=== PATIENT | female | born 1945 | race Caucasian/White ===

== ENCOUNTER 2017-02-02 10:13 | Emergency (ER) | payer MEDICARE, BC ==
[~2017-02-02] VITALS: Ht 149.9 cm; Wt 83.9 kg
[2017-02-02] MEDS ORDERED: TYLE325T5 PO (10:36)
[2017-02-02] MEDS ORDERED: CHLO125TA (10:36)
[2017-02-02] MEDS ORDERED: SIMV20TA2 (10:36)
[2017-02-02] MEDS ORDERED: OLME20TA2 (10:36)
[2017-02-02] MEDS ORDERED: FLUT1SPR2 (10:36)
[2017-02-02] MEDS ORDERED: SYNT75TA (10:36)
[2017-02-02] MEDS ORDERED: DICL75TA (10:36)
[2017-02-02] MEDS ORDERED: POTA10TAB (10:36)
[2017-02-02] MEDS ORDERED: OMEP20CA3 (10:36)
[2017-02-02 12:13] LABS: BASO % 0.6 % (0.0-1.0); EOS # 0.5 K/mm3 (0.0-0.50); EOS % 7.9 % (0.0-3.0); LARGE UNSTAINED CELL # 0.2 K/mm3 (0.0-0.4); LYMPH # 1.9 K/mm3 (1.5-4.5); LYMPH % 29.8 % (24.0-44.0); MEAN CORPUSCULAR HEMOGLOBIN 30.1 pg (27.0-33.0); MEAN CORPUSCULAR HGB CONC 33.1 g/dl (32.0-36.5); MEAN CORPUSCULAR VOLUME 90.9 fl (80.0-96.0); MONO # 0.5 K/mm3 (0.0-0.8); MONO % 8.3 % (0.0-5.0); NEUTROPHILS % 50.4 % (36.0-66.0); PLATELET COUNT, AUTOMATED 345 k/mm3 (150-450); RED CELL DISTRIBUTION WIDTH 12.5 % (11.5-14.5); WHITE BLOOD COUNT 5.9 K/mm3 (4.0-10.0)
[2017-02-02 12:46] LABS: CALCIUM LEVEL 8.8 MG/DL (8.8-10.2); CREATININE FOR GFR 1.07 MG/DL (0.55-1.02); GLOMERULAR FILTRATION RATE 53.7 (>39); POTASSIUM SERUM 3.2 MEQ/L (3.5-5.1)
[2017-02-02] MEDS ORDERED: ISOVUE-370 76% 100ML VIAL (Q9967) As Ordered ONE (12:53)
[2017-02-02] MEDS ORDERED: ACET30TAB PO (13:46)
[2017-02-02 13:55] VITALS: BP 130/69
--- NOTE | 2017-02-02 14:09 | REP ---
CT ABDOMEN AND PELVIS WITH IV CONTRAST: TECHNIQUE: Axial contrast enhanced images from the lung bases to the pubic symphysis using 100 mL Isovue 370 intravenous contrast material with multiplanar reformations. COMPARISON: [facility] 08/09/2016. Visualized lung bases demonstrate chronic fibrotic changes. The liver, gallbladder, spleen, adrenals, and pancreas are unremarkable and unchanged. A tiny cyst is seen in each kidney. There is no hydronephrosis bilaterally. 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 There is no abdominal aortic aneurysm with scattered atherosclerotic calcifications. There is no adenopathy. There is no free air or free fluid. There is no bowel thickening. There is an umbilical hernia containing fat which appears unchanged. There is sigmoid diverticulosis without acute diverticulitis. Patient appears to have had hysterectomy. There is no pelvic mass. Urinary bladder is not well distended and not well evaluated. IMPRESSION: Chronic findings as above with no evidence of acute abdominal or pelvic pathology. Umbilical hernia contains fat and is stable since prior study of 08/09/2016. There is sigmoid diverticulosis without acute diverticulitis. 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 Signed by Eron Saldana MD 02/02/2017 05:39 P
--- NOTE | 2017-02-05 10:08 | REP ---
TWO VIEW CHEST: COMPARISON: 02/08/2006 There is no evidence of acute infiltrate. No pleural effusion is seen. The heart is normal in size. The mediastinal silhouette is unremarkable. The visualized osseous structures are intact. There is mild tortuosity of the thoracic aorta. There are mild degenerative changes of the spine. IMPRESSION: No acute pulmonary disease. Signed by Eron Saldana MD 02/05/2017 04:34 P
== END 2017-02-02 14:04 | disposition home or self-care (01) ==
LOC: M ED 11:31
DX: R10.30 Lower abdominal pain, unspecified (principal); S23.3XXA Sprain of ligaments of thoracic spine, initial encounter; X58.XXXA Exposure to other specified factors, initial encounter; Y92.89 Other specified places as the place of occurrence of the external cause; Y93.89 Activity, other specified; Y99.8 Other external cause status; I10 Essential (primary) hypertension; R51 Headache; E78.00 Pure hypercholesterolemia, unspecified; K57.32 Diverticulitis of large intestine without perforation or abscess without bleeding; Z87.891 Personal history of nicotine dependence; Z79.899 Other long term (current) drug therapy
CPT/HCPCS: 36415; 71020; 74177; 80048; 81001; 82150; 83690; 85025; 86140; 87086; 99282; Q9967

== ENCOUNTER 2017-07-05 07:30 | Day surgery (SDC) | payer MEDICARE, BC ==
[~2017-07-05] VITALS: Ht 152.4 cm; Wt 83.5 kg
[~2017-07-05 07:30] MED LIST: ACET30TAB PO; ALLE180T33 PO; ASPI1TAB PO; BENA25CA4 PO; CALC1TAB42 PO; CALC600T60 PO; CHLO125TA PO; DICL75TA; DICL75TA PO; ESTR1CRE PV; FLUT1SPR2; OLME20TA2 PO; OMEP20CA3 PO; POTA10TAB PO; SIMV20TA2; SYNT75TA PO; TYLE325T5 PO; TYLE650T35 PO; VITA100067 PO
[2017-07-05] MEDS ORDERED: LR 1,000 ML IV ONE (08:00)
[2017-07-05] MEDS ORDERED: BUPIVACAINE HCL 0.25% 30 ML VIAL As Ordered ONE (09:35)
[2017-07-05] MEDS ORDERED: BUPIVACAINE LIPOSOME/PF 1.3% 20 ML VIAL (13.3MG/ML)(EXPAREL) As Ordered ONE (09:35)
[2017-07-05] MEDS ORDERED: LIDOCAINE 2% INJ 100 MG/5 ML SDV (FOR ANES.) As Ordered ONE (10:35)
[2017-07-05] MEDS ORDERED: fentaNYL 100 MCG/2 ML INJECTION (J3010) As Ordered ONE (10:35)
[2017-07-05] MEDS ORDERED: PROPOFOL 200 MG/20 ML VIAL As Ordered ONE ×2 (10:35→11:04)
[2017-07-05] MEDS ORDERED: MIDAZOLAM INJ 2 MG/2 ML VIAL (J2250) As Ordered ONE (10:35)
[2017-07-05] MEDS ORDERED: PHENYLephrine HCL 500 MCG/5 ML (100MCG/ML) SYRINGE (J2370) As Ordered ONE (10:39)
[2017-07-05] MEDS ORDERED: ePHEDrine SULFATE 25 MG/5 ML(5MG/ML) SYRINGE As Ordered ONE ×2 (10:49→11:16)
[2017-07-05] MEDS ORDERED: PERCOCET 5MG/325MG TAB As Ordered ONE (12:04)
[2017-07-05] MEDS ORDERED: PERCOCET 5MG/325MG TAB PO PRN (12:15)
[2017-07-05] MEDS ORDERED: LR 1,000 ML IV SCH (12:15)
[2017-07-05] MEDS ORDERED: fentaNYL 100 MCG/2 ML INJECTION (J3010) IV PRN (12:15)
[2017-07-05] MEDS ORDERED: NORCO, ANEXSIA 5/325MG TABLET (HYDROcodone/ACETAMINOPHEN) PO PRN (12:15)
[2017-07-05] MEDS ORDERED: IBUPROFEN 400 MG TAB PO PRN (12:15)
[2017-07-05] MEDS ORDERED: ACETAMINOPHEN TAB 650MG DOSE (2X325MG) PO PRN (12:15)
[2017-07-05] MEDS ORDERED: ONDANSETRON 4MG/2ML VIAL (J2405) IV PRN (12:15)
[2017-07-05 16:35] VITALS: BP 126/60
--- NOTE | 2017-07-05 21:16 | ECGEPIP ---
Stationary ECG Study [facility] Test Date: 2017-07-05 Pat Name: WARNER AYALA Department: Room: - Gender: F [employer]: : [id number] Requested By: Liban Pearson Order Number: [id number] Reading MD: Chavez Muro Measurements Intervals [place] Rate: 68 P: 65 WA: 162 QRS: 72 QRSD: 89 T: 59 QT: 420 QTc: 450 Interpretive Statements Normal sinus rhythm Low precordial QRS voltage Delayed anterior R wave progression Consider prior IWMI Comparison tracing not on file Electronically Signed On 07-05-2017 21:15:57 EDT by Chavez Muro
--- NOTE | 2017-07-06 18:13 | RO ---
DATE OF PROCEDURE: 07/05/2017 PREOPERATIVE DIAGNOSIS: Incarcerated umbilical hernia. POSTOPERATIVE DIAGNOSIS: Incarcerated umbilical hernia. PROCEDURE PERFORMED: Umbilical herniorrhaphy. SURGEON: Dr. Pearson ANESTHESIA: Spinal. INDICATIONS FOR PROCEDURE: The patient is a 72-year-old woman who noticed a bulge at the superior aspect of the umbilicus. Initially this was reducible but has become incarcerated. She has noted some discomfort in this area. She is now for repair of her incarcerated umbilical hernia. OPERATIVE PROCEDURE: The patient had a spinal anesthetic placed. She was placed supine. The patient's abdomen was prepped and draped in a sterile fashion. A slightly curved transverse supraumbilical incision was made. This was deepened into the subcutaneous tissues. The umbilical skin was peeled off of the underlying umbilical hernia. The hernia sac was identified and peeled away from some underlying fibrofatty tissue. Some of this appeared to be preperitoneal. As the fatty tissue was transected just above the fascia. It was clear that there was an opening into the peritoneum and some omentum was entrapped. The omentum was also transected using the cautery as it could not be reduced through the smaller fascial opening. The hernia sac was sent as one specimen and the omentum as a second specimen. Once the tissues had been cleared from within the fascial defect. The fascial defect appeared to be approximately 1.5 to maximally 2 cm in maximal diameter. The edges of the fascia were cleared of some thinned areas and adherent fat. The defect appeared amendable to a primary closure. The fascia was therefore closed transversely with interrupted simple sutures of 0 Ethibond. 10-15 mL of 0.25% Marcaine were infiltrated about the wound. The wound was inspected for hemostasis and this was ensured using the cautery. The umbilical skin was tacked down to the underlying fascia using 3-0 Vicryl. Skin edges were brought together with buried 3-0 Vicryl and the skin edges approximated with a running subcuticular 4-0 Vicryl and Steri-Strips. The umbilicus was filled with fluffed gauze and covered with a 4x4. The dressing was taped in place. The patient was then awakened in the operating room, extubated and moved to the recovery room in stable condition. VANESSA
== END 2017-07-05 16:45 | disposition home or self-care (01) ==
LOC: M SDC 07:30
PROVIDERS: ATTEND Surgery
DX: K42.0 Umbilical hernia with obstruction, without gangrene (principal); I10 Essential (primary) hypertension; E78.00 Pure hypercholesterolemia, unspecified; E03.9 Hypothyroidism, unspecified; K57.92 Diverticulitis of intestine, part unspecified, without perforation or abscess without bleeding; K58.9 Irritable bowel syndrome, unspecified; K21.9 Gastro-esophageal reflux disease without esophagitis; M19.90 Unspecified osteoarthritis, unspecified site; N81.10 Cystocele, unspecified; R32 Unspecified urinary incontinence; J30.9 Allergic rhinitis, unspecified; M54.9 Dorsalgia, unspecified; Z88.1 Allergy status to other antibiotic agents; Z79.899 Other long term (current) drug therapy; Z79.82 Long term (current) use of aspirin
CPT/HCPCS: 49587; 88302; 88305; 93005; J2250; J2370; J3010

== ENCOUNTER → 2017-10-12 | Outpatient (CLI) | payer MEDICARE, BC ==
[~2017-10-12] MED LIST changes: +ZYRT10TA2 PO
[2017-10-12 12:15] LABS: MEAN CORPUSCULAR HEMOGLOBIN 29.9 pg (27.0-33.0); MEAN CORPUSCULAR HGB CONC 31.8 g/dl (32.0-36.5); MEAN CORPUSCULAR VOLUME 94.1 fl (80.0-96.0); PLATELET COUNT, AUTOMATED 376 10^3/uL (150-450); RED CELL DISTRIBUTION WIDTH 13.8 % (11.5-14.5); WHITE BLOOD COUNT 8.6 10^3/uL (4.0-10.0)
[2017-10-12 12:33] LABS: INR 0.99
[2017-10-12 12:43] LABS: ALBUMIN 3.1 GM/DL (3.2-5.2); ALBUMIN/GLOBULIN RATIO 0.63 (1.00-1.93); ALKALINE PHOSPHATASE 200 U/L (45-117); ALT/SGPT 48 U/L (12-78); ANION GAP 4 MEQ/L (8-16); AST/SGOT 38 U/L (7-37); BILIRUBIN,TOTAL 0.3 MG/DL (0.2-1.0); BLOOD UREA NITROGEN 22 MG/DL (7-18); CALCIUM LEVEL 8.7 MG/DL (8.8-10.2); CARBON DIOXIDE LEVEL 33 MEQ/L (21-32); CHLORIDE LEVEL 102 MEQ/L (98-107); GLOMERULAR FILTRATION RATE > 60.0 (>39); GLUCOSE, FASTING 95 MG/DL (83-110); POTASSIUM SERUM 4.3 MEQ/L (3.5-5.1); SODIUM LEVEL 139 MEQ/L (136-145)
[2017-10-12 12:44] LABS: ERYTHROCYTE SEDIMENTATION RATE 74 mm/hr (0-30)
--- NOTE | 2017-10-12 15:24 | REP ---
CHEST, TWO VIEWS: Two views of the chest are performed and compared to prior study of 02/02/2017. No acute infiltrate is seen. Lungs are clear. Heart is upper limits of normal in size. There is mild calcification and tortuosity of the thoracic aorta. The mediastinal silhouette is unchanged. There are degenerative changes of the spine. IMPRESSION: No acute pulmonary disease. Signed by Eron Saldana MD 10/12/2017 05:01 P
== END ==
LOC: M ADMPAT 10:18
PROVIDERS: ATTEND Orthopaedic Surgery
DX: Z01.818 Encounter for other preprocedural examination (principal); M19.112 Post-traumatic osteoarthritis, left shoulder; Z79.899 Other long term (current) drug therapy

== ENCOUNTER → 2017-10-15 | Outpatient (REF) | payer MEDICARE, BC | LOC: M LAB REF 18:18 | PROVIDERS: ATTEND Family Medicine | DX: R74.8 Abnormal levels of other serum enzymes (principal) ==

== ENCOUNTER → 2017-10-30 | Outpatient (CLI) | payer MEDICARE, BC | LOC: M RAD 09:24 | DX: R74.8 Abnormal levels of other serum enzymes (principal); R79.82 Elevated C-reactive protein (CRP) | CPT/HCPCS: 78306 ==

== ENCOUNTER → 2017-11-05 | Outpatient (CLI) | payer MEDICARE, BC | LOC: M RAD 09:58 | DX: R94.8 Abnormal results of function studies of other organs and systems (principal) | CPT/HCPCS: 72110 ==

== ENCOUNTER → 2017-11-15 | Outpatient (REF) | payer MEDICARE, BC ==
[2017-11-15 14:24] LABS: C REACTIVE PROTEIN QUANTITATIV 2.16 MG/DL (0.00-0.30)
== END ==
LOC: M LAB REF 13:33
DX: M25.50 Pain in unspecified joint (principal)
CPT/HCPCS: 86140

== ENCOUNTER → 2018-01-03 | Outpatient (REF) | payer MEDICARE, BC ==
[2018-01-03 19:10] LABS: RHEUMATOID FACTOR QUANT 11.3 IU/ML (0-15.0)
[2018-01-07 00:06] LABS: ANTINUCLEAR ANTIBODIES DIRECT Negative (Negative)
[2018-01-07 00:06] LABS: CYCLIC CITRULLINATED PEPTIDE 8 units (0-19)
== END ==
LOC: M LAB REF 17:22
DX: M79.1 Myalgia (principal); D48.5 Neoplasm of uncertain behavior of skin
CPT/HCPCS: 86038

== ENCOUNTER → 2018-05-03 | Outpatient (CLI) | payer MEDICARE, BC ==
[2018-05-03 10:35] LABS: CREATININE FOR GFR 0.95 MG/DL (0.55-1.30); GLOMERULAR FILTRATION RATE > 60.0 (>39)
[2018-05-03 10:35] LABS: BLOOD UREA NITROGEN 25 MG/DL (7-18)
== END ==
LOC: M LAB 09:42
DX: M19.012 Primary osteoarthritis, left shoulder (principal)
CPT/HCPCS: 82565

== ENCOUNTER → 2018-05-06 | Outpatient (CLI) | payer MEDICARE, BC ==
[~2018-05-06] MED LIST changes: -ACET30TAB PO; -ALLE180T33 PO; -ASPI1TAB PO; -BENA25CA4 PO; -CALC1TAB42 PO; -CALC600T60 PO; -CHLO125TA PO; -DICL75TA; -DICL75TA PO; -ESTR1CRE PV; -FLUT1SPR2; -OLME20TA2 PO; -OMEP20CA3 PO; -POTA10TAB PO; +PROHANCE 279.3MG/ML 15ML VIAL (A9576) As Ordered; +PROHANCE 279.3MG/ML 5ML VIAL (A9576) As Ordered; -SIMV20TA2; -SYNT75TA PO; -TYLE325T5 PO; -TYLE650T35 PO; -VITA100067 PO; -ZYRT10TA2 PO
== END ==
LOC: M RAD 12:26
DX: M19.012 Primary osteoarthritis, left shoulder (principal)
CPT/HCPCS: A9576

== ENCOUNTER → 2018-06-04 | Outpatient (REF) | payer MEDICARE, BC | LOC: M LAB REF 13:03 | DX: R70.0 Elevated erythrocyte sedimentation rate (principal) | CPT/HCPCS: 86140 ==

== ENCOUNTER → 2018-07-03 | Outpatient (CLI) | payer MEDICARE, BC ==
[2018-07-03 09:44] LABS: HEMATOCRIT 36.9 % (36.0-47.0); MEAN CORPUSCULAR HEMOGLOBIN 30.3 pg (27.0-33.0); MEAN CORPUSCULAR HGB CONC 32.5 g/dl (32.0-36.5); MEAN CORPUSCULAR VOLUME 93.2 fl (80.0-96.0); PLATELET COUNT, AUTOMATED 355 10^3/uL (150-450); RED BLOOD COUNT 3.96 10^6/uL (4.00-5.40); RED CELL DISTRIBUTION WIDTH 13.2 % (11.5-14.5); WHITE BLOOD COUNT 6.5 10^3/uL (4.0-10.0)
[2018-07-03 09:54] LABS: INR 1.02; PROTHROMBIN TIME 13.5 SECONDS (12.1-14.4)
[2018-07-03 10:08] LABS: ERYTHROCYTE SEDIMENTATION RATE 65 mm/hr (0-30)
[2018-07-03 10:11] LABS: ALBUMIN 3.3 GM/DL (3.2-5.2); ALBUMIN/GLOBULIN RATIO 0.63 (1.00-1.93); ALKALINE PHOSPHATASE 193 U/L (45-117); ALT/SGPT 26 U/L (12-78); ANION GAP 11 MEQ/L (8-16); AST/SGOT 22 U/L (7-37); BILIRUBIN,TOTAL 0.3 MG/DL (0.2-1.0); BLOOD UREA NITROGEN 16 MG/DL (7-18); CALCIUM LEVEL 9.2 MG/DL (8.8-10.2); CARBON DIOXIDE LEVEL 26 MEQ/L (21-32); CHLORIDE LEVEL 103 MEQ/L (98-107); CREATININE FOR GFR 0.69 MG/DL (0.55-1.30); GLOMERULAR FILTRATION RATE > 60.0 (>39); GLUCOSE, FASTING 100 MG/DL (70-100); POTASSIUM SERUM 3.8 MEQ/L (3.5-5.1); SODIUM LEVEL 140 MEQ/L (136-145); TOTAL PROTEIN 8.5 GM/DL (6.4-8.2)
== END ==
LOC: M LAB 08:56
DX: Z01.818 Encounter for other preprocedural examination (principal)
CPT/HCPCS: 71046

== ENCOUNTER 2018-07-23 10:01 | Inpatient (IN) | payer MEDICARE, BC ==
[2018-07-23] MEDS: ACETAMINOPHEN 500 MG TAB PO (10:46)
[2018-07-23] MEDS: LR 1,000 ML IV ×3 (10:46→18:50)
[2018-07-23] MEDS ORDERED: fentaNYL 100 MCG/2 ML INJECTION (J3010) As Ordered ×3 (11:53→17:04)
[2018-07-23] MEDS ORDERED: MIDAZOLAM INJ 2 MG/2 ML VIAL (J2250) As Ordered ×2 (11:53→12:24)
[2018-07-23] MEDS: MIDAZOLAM INJ 2 MG/2 ML VIAL (J2250) IV (12:11)
[2018-07-23] MEDS: fentaNYL 100 MCG/2 ML INJECTION (J3010) IV (12:11)
[2018-07-23] MEDS ORDERED: LIDOCAINE 2% INJ 100 MG/5 ML SDV (FOR ANES.) As Ordered (12:24)
[2018-07-23] MEDS ORDERED: PROPOFOL 200 MG/20 ML VIAL As Ordered (12:24)
[2018-07-23] MEDS ORDERED: ONDANSETRON 4MG/2ML VIAL (J2405) As Ordered (12:24)
[2018-07-23] MEDS ORDERED: ROCURONIUM BROMIDE 50 MG/5 ML VIAL As Ordered (13:19)
[2018-07-23] MEDS ORDERED: ROPIvacaine 0.5% 30 ML INJECTION (J2795 PER 1MG) (14:06)
[2018-07-23] MEDS ORDERED: EPINEPHrine INJ 1 MG/ML 1ML AMP (14:06)
[2018-07-23] MEDS ORDERED: dexameTHASONE 10 MG/1 ML VIAL PRES.FREE (J1100) (14:06)
[2018-07-23] MEDS ORDERED: SUGAMMADEX SODIUM 500 MG/5 ML VIAL (BRIDION) As Ordered (14:33)
[2018-07-23] MEDS: ceFAZolin 1GM INJ (J0690 PER 500MG) As Ordered (14:38)
[2018-07-23] MEDS: EPINEPHrine INJ 1 MG/ML 1ML AMP As Ordered (14:38)
[2018-07-23] MEDS ORDERED: PHENYLephrine HCL 500 MCG/5 ML (100MCG/ML) SYRINGE (J2370) As Ordered (15:16)
[2018-07-23] MEDS: VANCOMYCIN HCL 500 MG/10 ML VIAL (J3370) As Ordered (16:56)
[2018-07-23] MEDS ORDERED: NORCO, ANEXSIA 5/325MG TABLET (HYDROcodone/ACETAMINOPHEN) PO (17:30)
[2018-07-23] MEDS ORDERED: fentaNYL 100 MCG/2 ML INJECTION (J3010) IV (17:30)
[2018-07-23] MEDS ORDERED: diphenhydrAMINE INJ 50MG/ML VIAL (J1200) IV (17:30)
[2018-07-23] MEDS ORDERED: NALBUPHINE HCL 10 MG/ML AMP (J2300) IV (17:30)
[2018-07-23] MEDS ORDERED: EPIDURAL/PCA KEYS XX (17:30)
[2018-07-23] MEDS ORDERED: ONDANSETRON 4MG/2ML VIAL (J2405) IV ×2 (17:30)
[2018-07-23] MEDS ORDERED: NALOXONE INJ 0.4 MG/1 ML VIAL (J2310) IV (17:30)
[2018-07-23] MEDS: MORPHINE 1MG/ML IN 0.9% NACL 100ML IV BAG IV (17:35)
[2018-07-23] MEDS ORDERED: FLEET ENEMA PR (17:45)
[2018-07-23] MEDS ORDERED: ACETAMINOPHEN TAB 650MG DOSE (2X325MG) PO (17:45)
[2018-07-23] MEDS ORDERED: ALBUTEROL 90 MCG/ACT 8GM HFA INHALER INH (18:45)
[2018-07-23] MEDS: LATANOPROST 0.005% OPHTH SOLN 2.5 ML OS (21:08)
[2018-07-23] MEDS: SENOKOT S TAB PO (21:08)
[2018-07-23] MEDS: SIMVASTATIN 20 MG TAB PO (21:08)
[2018-07-23] MEDS: ceFAZolin SOD 1 GM in D5W MINI-BAG PLUS 50 ML IV (23:35)
[2018-07-24] MEDS: LR 1,000 ML IV (02:27)
[2018-07-24] MEDS: ceFAZolin SOD 1 GM in D5W MINI-BAG PLUS 50 ML IV (03:15)
[2018-07-24] MEDS: LEVOTHYROXINE 75MCG TABLET (0.075MG) PO (05:51)
[2018-07-24] MEDS ORDERED: ONDANSETRON 4 MG TAB (S0181) PO (06:45)
[2018-07-24] MEDS ORDERED: PERCOCET 5MG/325MG TAB PO (06:45)
[2018-07-24 07:00] LABS: HEMATOCRIT 28.8 % (36.0-47.0); HEMOGLOBIN 9.3 g/dl (12.0-15.5); MEAN CORPUSCULAR HGB CONC 32.3 g/dl (32.0-36.5); MEAN CORPUSCULAR VOLUME 92.9 fl (80.0-96.0); PLATELET COUNT, AUTOMATED 283 10^3/uL (150-450); RED CELL DISTRIBUTION WIDTH 13.3 % (11.5-14.5); WHITE BLOOD COUNT 13.4 10^3/uL (4.0-10.0)
[2018-07-24 07:10] LABS: INR 1.11; PROTHROMBIN TIME 14.5 SECONDS (12.1-14.4)
[2018-07-24 07:13] LABS: ANION GAP 10 MEQ/L (8-16); BLOOD UREA NITROGEN 23 MG/DL (7-18); CALCIUM LEVEL 8.1 MG/DL (8.8-10.2); CARBON DIOXIDE LEVEL 25 MEQ/L (21-32); CHLORIDE LEVEL 102 MEQ/L (98-107); CREATININE FOR GFR 0.85 MG/DL (0.55-1.30); GLOMERULAR FILTRATION RATE > 60.0 (>39); GLUCOSE, FASTING 166 MG/DL (70-100); POTASSIUM SERUM 3.9 MEQ/L (3.5-5.1); SODIUM LEVEL 137 MEQ/L (136-145)
[2018-07-24] MEDS: CETIRIZINE (ZyrTEC) 10 MG TAB PO (08:27)
[2018-07-24] MEDS: OMEPRAZOLE 20 MG CAP PO (08:27)
[2018-07-24] MEDS: SENOKOT S TAB PO (08:27)
[2018-07-24] MEDS: VITAMIN D 1,000 INTERNATIONAL UNITS TABLET PO (08:27)
[2018-07-24] MEDS: PERCOCET 5MG/325MG TAB PO (08:29)
[2018-07-24] MEDS: ASCORBIC ACID 500 MG TAB PO (08:29)
[2018-07-24] MEDS: CHLORTHALIDONE 12.5MG PER 1/2 TABLET PO (08:29)
[2018-07-24] MEDS: FLUTICASONE PROP 0.05% NASAL SPRAY 16 GM (FLONASE) (08:30)
[2018-07-24] MEDS: MIRALAX *UNIT DOSE* 17GM PACKET PO (08:30)
[2018-07-24] MEDS: OLMESARTAN MEDOXOMIL 20 MG TAB (BENICAR) PO (08:47)
[2018-07-24] MEDS ORDERED: ENTER DRUG NAME HERE (PATIENT'S OWN MED) PO (09:00)
== END 2018-07-24 10:55 | disposition home or self-care (01) | DRG 483 ==
LOC: M OR 10:01 → M MS5PR 18:00
PROC: 0RRK0JZ Replacement of Left Shoulder Joint with Synthetic Substitute, Open Approach (ICD-10-PCS; principal; 2018-07-23 13:10)
DX: M19.012 Primary osteoarthritis, left shoulder (principal); I10 Essential (primary) hypertension; E66.9 Obesity, unspecified; E78.5 Hyperlipidemia, unspecified; E03.9 Hypothyroidism, unspecified; K57.90 Diverticulosis of intestine, part unspecified, without perforation or abscess without bleeding; J30.9 Allergic rhinitis, unspecified; K21.9 Gastro-esophageal reflux disease without esophagitis; Z96.652 Presence of left artificial knee joint; Z90.49 Acquired absence of other specified parts of digestive tract; Z90.710 Acquired absence of both cervix and uterus; Z79.82 Long term (current) use of aspirin; Z79.899 Other long term (current) drug therapy; Z87.891 Personal history of nicotine dependence; Z68.38 Body mass index [BMI] 38.0-38.9, adult

== ENCOUNTER → 2019-09-22 | Outpatient (REF) | payer MEDICARE, BC ==
[~2019-09-22] MED LIST changes: +ACET-716 PO; +ALLE180T33 PO; +ASPI81TA26 PO; +BENA25CA4 PO; +CALC1TAB42 PO; +CALC600T60 PO; +CHLO125TA PO; +DICL75TA; +DICL75TA PO; +ESTR1CRE PV; +ESTR1CRE VA; +FLON1SPR; +FLUT1SPR2; +LATA0.0013 OS; +MYRB25TA PO; +OLME20TA2 PO; +OLME40TA PO; +OMEP20CA4 PO; +PERC5TAB12 PO; +POTA10808 PO; -PROHANCE 279.3MG/ML 15ML VIAL (A9576) As Ordered; -PROHANCE 279.3MG/ML 5ML VIAL (A9576) As Ordered; +SIMV20TA2; +SYNT75TA PO; +TYLE325T5 PO; +TYLE650T35 PO; +VENTAER INH; +VITA100067 PO; +VITA500T PO; +ZYRT10CA5 PO
== END ==
LOC: M LAB REF 12:11
PROVIDERS: ATTEND Family Medicine
DX: R70.0 Elevated erythrocyte sedimentation rate (principal)

== ENCOUNTER → 2019-09-23 | Outpatient (REF) | payer MEDICARE, BC ==
[~2019-09-23] MED LIST changes: -SIMV20TA2; +SIMV20TA22
[2019-09-23 18:46] LABS: PERCENT SATURATION 19.1 % (13.2-45.0)
[2019-09-23 18:51] LABS: FOLATE 15.9 NG/ML
== END ==
LOC: M LAB REF 17:22
PROVIDERS: ATTEND Family Medicine
DX: D64.9 Anemia, unspecified (principal)

== ENCOUNTER → 2019-11-25 | Outpatient (REF) | payer MEDICARE, BC ==
[~2019-11-25] MED LIST changes: +OMEP1CAP73 PO; -OMEP20CA4 PO
[2019-11-25 18:29] LABS: PLATELET COUNT, AUTOMATED 364 10^3/uL (150-450)
[2019-11-25 18:38] LABS: INR 1.12; PROTHROMBIN TIME 14.1 SECONDS (11.8-14.0)
[2019-11-25 18:39] LABS: PARTIAL THROMBOPLASTIN TIME 30.4 SECONDS (25.0-38.4)
== END ==
LOC: M LABDRAW1 17:39
PROVIDERS: ATTEND Physician Assistant
DX: M47.817 Spondylosis without myelopathy or radiculopathy, lumbosacral region (principal); Z79.01 Long term (current) use of anticoagulants

== ENCOUNTER 2019-12-17 18:10 | Emergency (ER) | payer MEDICARE, BC ==
[2019-12-17] MEDS ORDERED: ACETAMINOPHEN 325 MG TAB PO ONE (19:15)
[2019-12-17] MEDS ORDERED: KETOROLAC 30 MG/ML VIAL (J1885) IM ONE (19:15)
[2019-12-17] MEDS ORDERED: traMADol 50 MG TAB PO ONE (19:15)
[2019-12-17 20:12] VITALS: BP 151/69
[2019-12-17] MEDS ORDERED: ULTR50TA8 PO (20:23)
== END 2019-12-17 21:00 | disposition home or self-care (01) ==
LOC: M ED 18:10 → EDBD 18:10 → M ED 21:00
DX: M51.37 Other intervertebral disc degeneration, lumbosacral region (principal); I10 Essential (primary) hypertension; E03.9 Hypothyroidism, unspecified; E78.00 Pure hypercholesterolemia, unspecified; Z79.899 Other long term (current) drug therapy; Z79.82 Long term (current) use of aspirin; Z79.890 Hormone replacement therapy; Z88.1 Allergy status to other antibiotic agents
CPT/HCPCS: 96372; 99284; J1885

== ENCOUNTER → 2019-12-23 | Outpatient (REF) | payer MEDICARE, BC ==
[~2019-12-23] MED LIST changes: +ULTR50TA8 PO
[2019-12-23 13:07] LABS: C REACTIVE PROTEIN QUANTITATIV 3.93 MG/DL (0.00-0.30)
[2019-12-23 14:19] LABS: % LABILE ALKALINE PHOSPHATASE 34.2 %
== END ==
LOC: M LAB REF 12:12
PROVIDERS: ATTEND Family Medicine
DX: M25.50 Pain in unspecified joint (principal); R79.89 Other specified abnormal findings of blood chemistry

== ENCOUNTER → 2020-04-23 | Outpatient (CLI) | payer MEDICARE, BC ==
[~2020-04-23] MED LIST changes: +VITA-243 PO; -VITA500T PO
== END ==
LOC: M LABSMTC 10:57
PROVIDERS: ATTEND Physical Medicine & Rehabilitation
DX: Z01.818 Encounter for other preprocedural examination (principal); Z11.59 Encounter for screening for other viral diseases

== ENCOUNTER → 2020-05-20 | Outpatient (REF) | payer MEDICARE, BC ==
[~2020-05-20] MED LIST changes: +ACET650T61 PO; -TYLE650T35 PO
== END ==
LOC: M LAB REF 11:19
PROVIDERS: ATTEND Family Medicine
DX: M25.50 Pain in unspecified joint (principal); R74.8 Abnormal levels of other serum enzymes

== ENCOUNTER → 2020-06-09 | Outpatient (REF) | payer MEDICARE, BC ==
[2020-07-20 12:27] LABS: PLATELET COUNT, AUTOMATED 347 10^3/uL (150-450)
[2020-08-09 12:36] LABS: COLLAGEN ADP 90 SECONDS (56-103); COLLAGEN EPINEPHRINE > 300 SECONDS (74-162)
[2020-08-09 12:37] LABS: INR 1.07; PARTIAL THROMBOPLASTIN TIME 37.6 SECONDS (24.2-38.5); PROTHROMBIN TIME 14.1 SECONDS (12.5-14.3)
== END ==
LOC: M PLALAB 16:09
PROVIDERS: ATTEND Physician Assistant
DX: M47.817 Spondylosis without myelopathy or radiculopathy, lumbosacral region (principal)

== ENCOUNTER → 2020-06-28 | Outpatient (CLI) | payer MEDICARE, BC | LOC: M LABSMTC 14:07 | PROVIDERS: ATTEND Physical Medicine & Rehabilitation | DX: Z20.828 Contact with and (suspected) exposure to other viral communicable diseases (principal) | CPT/HCPCS: C9803; U0002 ==

== ENCOUNTER → 2020-07-07 | Outpatient (REF) | payer MEDICARE, BC ==
[2020-07-07 20:33] LABS: FERRITIN 170 NG/ML (8-252); FOLATE 17.2 NG/ML; HEPATITIS A ANTIBODY IGM NEGATIVE (NEGATIVE); HEPATITIS B CORE ANTIBODY IGM NEGATIVE (NEGATIVE); HEPATITIS B SURFACE ANTIGEN NEGATIVE (NEGATIVE); HEPATITIS C VIRUS ABY INDEX 0.2 INDEX (<0.8); RHEUMATOID FACTOR QUANT 17.7 IU/ML (<15.0); VITAMIN B12 LEVEL 359 PG/ML
[2020-07-09 17:07] LABS: ANTI-MITOCHONDRIAL ANTIBODY <20.0 Units (0.0-20.0); ANTINUCLEAR ANTIBODIES DIRECT Negative (Negative)
== END ==
LOC: M LAB REF 18:18
PROVIDERS: ATTEND Family Medicine
DX: R74.8 Abnormal levels of other serum enzymes (principal); D64.9 Anemia, unspecified

== ENCOUNTER → 2020-08-23 | Outpatient (CLI) | payer MEDICARE, BC ==
[2020-08-23 14:14] LABS: C REACTIVE PROTEIN QUANTITATIV 3.34 MG/DL (0.00-0.30); RHEUMATOID FACTOR QUANT 17.9 IU/ML (<15.0)
[2020-08-27 14:09] LABS: ANTINUCLEAR ANTIBODIES DIRECT Negative (Negative); HLA-B27 Negative (.)
== END ==
LOC: M PLALAB 10:50
PROVIDERS: ATTEND Physician Assistant
DX: M47.817 Spondylosis without myelopathy or radiculopathy, lumbosacral region (principal)

== ENCOUNTER → 2020-11-04 | Outpatient (CLI) | payer MEDICARE, BC ==
--- NOTE | 2020-11-04 13:49 | DEXAMM ---
INDICATION: Z78.0 ASYMPTOMATIC MENOPAUSAL STATE. COMPARISON: Comparison studies including most recent exam from April 22, 2014 and the most remote which is dated September 12, 2000. TECHNIQUE: Bone density was measured using dual-energy x-ray absorptionmetry (DEXA). FINDINGS: AP SPINE L1-L4 BMD 1.259 g/cm2 Young Adult T-Score 0.7 Age Matched Z-Score 2.4. LT FEMUR, TOTAL BMD 0.897 g/cm2 Young Adult T-Score -0.9 Age Matched Z-Score 0.9. LT NECK BMD 0.867 g/cm2 Young Adult T-Score -1.2 Age Matched Z-Score 0.8. RT FEMUR, TOTAL BMD 0.826 g/cm2 Young Adult T-Score -1.4 Age Matched Z-Score 0.5. RT NECK BMD 0.837 g/cm2 Young Adult T-Score -1.5 Age Matched Z-Score 0.5. IMPRESSION: There is normal bone density of the spine. There is low bone density of the left hip. There is low bone density of the right hip. The density of the spine has increased 33.4% since the initial exam on September 12, 2000. The density of the spine increased 19.3% since most recent exam on April 22, 2014. The density of the left hip has increased 4.4% since initial exam on September 12, 2000. The density of the left hip has increase 0.9% since most recent exam on April 22, 2014. The density of the right hip has increased 0.8% since the initial exam on September 12, 2000. The density of the right hip has decreased 4.5% since the most recent exam on April 22, 2014. FOLLOW-UP: Recommendation for the next bone density exam: 2 years. <Electronically signed by Noé Hawkins > 11/04/20 [id number]
== END ==
LOC: M WHC 12:51
PROVIDERS: ATTEND Internal Medicine
DX: Z78.0 Asymptomatic menopausal state (principal)

== ENCOUNTER → 2020-11-04 | Outpatient (CLI) | payer MEDICARE, BC ==
--- NOTE | 2020-11-04 14:55 | REPPI ---
INDICATION: SOB COMPARISON: 07/03/2018 TECHNIQUE: PA and lateral. FINDINGS: The mediastinum and cardiac silhouette are normal. The lung fonseca are clear and without acute consolidation, effusion, or pneumothorax. The skeletal structures demonstrate osteopenia and degenerative changes along with left shoulder replacement. IMPRESSION: No acute cardiopulmonary process. <Electronically signed by Ollie Newell > 11/04/20 [id number]
--- NOTE | 2020-11-04 15:02 | REPPI ---
Of the right hand. INDICATION: POLYARTHRALGIA. COMPARISON: Comparison radiographs are from January 07, 2018.. TECHNIQUE: Eight views total, 4 of each hand. FINDINGS: Four views of the left hand demonstrate diffuse osteopenia. There is minimal chondrocalcinosis at the wrist. Joint spaces are preserved. No erosive changes are seen.. No fracture or subluxation is seen. No opaque foreign body noted. Four views of the right hand demonstrate diffuse osteopenia as well. There is chondrocalcinosis at the right wrist. No erosive changes are seen. There is mild spurring at the DIP joint of the index finger IMPRESSION: Diffuse osteopenia. Chondrocalcinosis. Minimal degenerative changes.. <Electronically signed by Noé Hawkins > 11/04/20 [id number]
--- NOTE | 2020-11-04 15:15 | REPPI ---
INDICATION: POLYARTHRALGIA COMPARISON: None. TECHNIQUE: AP, lateral, bilateral oblique views of the right and left ankle. FINDINGS: Left ankle demonstrates relatively normal age-appropriate appearance to the osseous structures and joint spaces. The ankle mortise is intact. There is a small spur along the medial malleolus as well as 2 surgical clips in the soft tissues overlying the distal tibial metaphysis suggesting prior vascular surgery. Lateral view demonstrates a small to moderate calcaneal heel spur along with calcifications of the underlying plantar fascia. Right ankle demonstrates relatively normal age-appropriate appearance to the osseous structures and joint spaces. The ankle mortise is intact. There is a small corticated osteophyte along the medial malleolus. Lateral view demonstrates small to moderate calcaneal heel spur along with calcifications of the underlying plantar fascia. IMPRESSION: Relatively symmetric age-related degenerative changes as described above. <Electronically signed by Ollie Newell > 11/04/20 [id number]
--- NOTE | 2020-11-04 15:17 | REPPI ---
INDICATION: POLYARTHRALGIA COMPARISON: None. TECHNIQUE: AP, lateral, bilateral oblique views right and left wrist. FINDINGS: Right wrist demonstrates age-related osteopenia without evidence for fracture or dislocation. Subtle increased sclerosis to the radial surface with mildly decreased radiocarpal joint space noted as well as chondrocalcinosis primarily identified in the triangular fibrocartilage complex. Left wrist demonstrates age-appropriate appearance to the carpal bones and associated joint spaces. There is minimally increased sclerosis to the radial surface with subtle decreased radiocarpal joint space. 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 <Electronically signed by Ollie Newell > 11/04/20 1149
[2020-11-04 18:22] LABS: CPK CREATINE PHOSPHOKINASE 76 U/L (26-192); HEPATITIS B SURFACE ANTIBODY NEGATIVE (POSITIVE); HEPATITIS B SURFACE ANTIGEN NEGATIVE (NEGATIVE); MAGNESIUM LEVEL 2.1 MG/DL (1.8-2.4); PTH INTACT 29.2 PG/ML (18.5-88.0); VITAMIN B12 LEVEL 285 PG/ML (247-911)
[2020-11-04 18:32] LABS: TOTAL 25(OH) VITAMIN D 70.3 NG/ML (30.0-100.0)
[2020-11-04 18:43] LABS: HEPATITIS C VIRUS ABY INDEX 0.2 INDEX (<0.8)
== END ==
LOC: M PLAIMG 13:29
PROVIDERS: ATTEND Internal Medicine
DX: M77.31 Calcaneal spur, right foot (principal); M77.32 Calcaneal spur, left foot; M85.88 Other specified disorders of bone density and structure, other site; M11.231 Other chondrocalcinosis, right wrist; M11.232 Other chondrocalcinosis, left wrist; R76.8 Other specified abnormal immunological findings in serum; M79.10 Myalgia, unspecified site; M25.50 Pain in unspecified joint; R06.02 Shortness of breath; Z78.0 Asymptomatic menopausal state

== ENCOUNTER → 2020-11-30 | Outpatient (REF) | payer MEDICARE, BC ==
[2020-11-30 17:00] LABS: PERCENT SATURATION 20.3 % (13.2-45.0)
== END ==
LOC: M LAB REF 16:02
PROVIDERS: ATTEND Family Medicine
DX: M11.239 Other chondrocalcinosis, unspecified wrist (principal); M25.50 Pain in unspecified joint
CPT/HCPCS: 82728; 83550; G0463

== ENCOUNTER → 2020-12-09 | Outpatient (CLI) | payer MEDICARE, BC ==
[~2020-12-09] MED LIST changes: +ISOVUE-300 61% 50ML VIAL As Ordered ONE; +LIDOCAINE 1% MDV 20ML VIAL As Ordered ONE; +TRIAMCINOLONE ACETONIDE SUSP 40 MG/ML VIAL (J3301) As Ordered ONE
--- NOTE | 2020-12-09 16:51 | REP ---
INDICATION: REJI HIP OA W/ PAIN. COMPARISON: None TECHNIQUE: The procedure was performed by CHANDA Marte, under the direct supervision of Dr. Hawkins. The benefits and risks of the procedure were explained to the patient, and an informed consent was obtained. Directly prior to the start of the procedure, a formal time-out was completed in the procedure room. The right femoral neck joint space was localized using fluoroscopic guidance. The skin was prepped and draped in a sterile fashion. Approximately 5 mL of 1% Lidocaine 10 mg/ml was used as a local anesthetic. Using fluoroscopic guidance, a #22 gauge spinal needle was inserted and advanced into the right femoral neck joint space. Approximately no one mL of Isovue 300 was injected to verify placement. Six mL of a solution containing 5 mL 1% lidocaine 10 mg/ml and 1 mL of Kenalog 40 milligrams/milliliter was injected into the joint space. The needle was removed and hemostasis was achieved. The patient was then repositioned and the left femoral neck joint space was localized using fluoroscopic guidance. The skin was prepped and draped in a sterile fashion. Approximately 5 mL of 1% Lidocaine 10 mg/ml was used as a local anesthetic. Using fluoroscopic guidance, a #22 gauge spinal needle was inserted and advanced into the left femoral neck joint space. Approximately no one mL of Isovue 300 was injected to verify placement. Six mL of a solution containing 5 mL 1% lidocaine 10 mg/ml and 1 mL of Kenalog 40 milligrams/milliliter was injected into the joint space. The needle was removed and hemostasis was achieved. FINDINGS: The patient tolerated the procedure well and there were no immediate complications. IMPRESSION: 1. Bilateral intra-articular hip pain injections under fluoroscopic guidance. 0.4 minutes of fluoroscopy time was utilized for this procedure. Some fluoroscopic images are performed with last image hold technology. These images require no additional radiation. <Electronically signed by Bettina Lopez > 12/09/20 [id number] <Electronically signed by Noé Hawkins > 12/09/20 [id number]
== END ==
LOC: M RADPRO 11:20
PROVIDERS: ATTEND Physician Assistant
DX: M16.0 Bilateral primary osteoarthritis of hip (principal)
CPT/HCPCS: 20610; 77002; J3301; Q9967

== ENCOUNTER → 2021-03-14 | Outpatient (CLI) | payer MEDICARE, BC ==
[~2021-03-14] MED LIST changes: -ISOVUE-300 61% 50ML VIAL As Ordered ONE; -LIDOCAINE 1% MDV 20ML VIAL As Ordered ONE; -TRIAMCINOLONE ACETONIDE SUSP 40 MG/ML VIAL (J3301) As Ordered ONE
[2021-03-14 18:08] LABS: C REACTIVE PROTEIN QUANTITATIV 2.45 MG/DL (0.00-0.30); RHEUMATOID FACTOR QUANT 17.5 IU/ML (<15.0)
== END ==
LOC: M PLALAB 14:59
PROVIDERS: ATTEND Orthopaedic Surgery
DX: M51.37 Other intervertebral disc degeneration, lumbosacral region (principal)

== ENCOUNTER → 2021-03-17 | Outpatient (REF) | payer MEDICARE, BC ==
[2021-03-17 14:19] LABS: % LABILE ALKALINE PHOSPHATASE 34.6 %
== END ==
LOC: M LAB REF 12:10
PROVIDERS: ATTEND Family Medicine
DX: R94.5 Abnormal results of liver function studies (principal)

== ENCOUNTER → 2021-06-27 | Outpatient (CLI) | payer MEDICARE, BC ==
[2021-06-27 16:16] LABS: CREATININE FOR GFR 1.01 MG/DL (0.55-1.30); GLOMERULAR FILTRATION RATE 56.6 (>39)
== END ==
LOC: M LAB 15:14
PROVIDERS: ATTEND Internal Medicine Gastroenterology
DX: I72.8 Aneurysm of other specified arteries (principal)

== ENCOUNTER → 2021-07-13 | Outpatient (CLI) | payer MEDICARE, BC ==
[2021-07-13 12:46] LABS: PLATELET COUNT, AUTOMATED 333 10^3/uL (150-450)
[2021-07-13 12:55] LABS: INR 0.99; PROTHROMBIN TIME 13.5 SECONDS (12.7-14.5)
== END ==
LOC: M LAB 10:49
PROVIDERS: ATTEND Internal Medicine Gastroenterology
DX: I72.8 Aneurysm of other specified arteries (principal)

== ENCOUNTER → 2021-07-14 | Outpatient (REF) | payer MEDICARE, BC | LOC: M LAB REF 16:55 | PROVIDERS: ATTEND Family Medicine | DX: M25.59 Pain in other specified joint (principal) ==

== ENCOUNTER → 2021-07-15 | Outpatient (CLI) | payer MEDICARE, BC ==
[~2021-07-15] MED LIST changes: +ACETAMINOPHEN 325 MG TAB As Ordered ONE; +LIDOCAINE 1% MDV 20ML VIAL As Ordered ONE; +SODIUM BICARBONATE 8.4% INJ 50MEQ 50 ML VIAL As Ordered ONE
[2021-07-15 14:35] VITALS: BP 142/68
--- NOTE | 2021-07-15 17:00 | REP ---
INDICATION: ABN LFTS. COMPARISON: None. TECHNIQUE: The procedure was performed by Bettina Lopez [facility], under the direct supervision of Dr. Saldana. The risks and benefits of the procedure were explained to the patient and an informed consent was obtained both verbally and written. Directly prior to the start of the procedure a formal time-out was completed in the procedure room. FINDINGS: Using ultrasound guidance the left lobe of the liver was localized. The skin was prepped and draped in a sterile fashion. Twenty mL of buffered lidocaine was used as a local anesthetic. Using ultrasound guidance a 17/18 gauge coaxial needle biopsy system was inserted and advanced into the left lobe of the liver. Four core biopsy specimens were obtained and sent to pathology for further analysis. The patient tolerated the procedure well and there were no immediate complications. After the appropriate amount of monitored convalescence the patient was discharged from the department. IMPRESSION: 1. Ultrasound-guided left lobe liver biopsy. <Electronically signed by Bettina Lopez > 07/15/21 [id number] <Electronically signed by Eron Saldana > 07/15/21 [id number]
== END ==
LOC: M IRPRO 11:16
PROVIDERS: ATTEND Internal Medicine Gastroenterology
DX: R94.5 Abnormal results of liver function studies (principal)

== ENCOUNTER → 2021-07-18 | Outpatient (CLI) | payer MEDICARE, BC ==
[~2021-07-18] MED LIST changes: -ACETAMINOPHEN 325 MG TAB As Ordered ONE; +AMIT25TA17 PO; +CALC-211 PO; +CETI10CA2 PO; +CLOB5CR TOP; +EQL1CAP9 PO; +ESTETAB4 PO; +GNP99TAB3 PO; +ISOVUE-370 76% 100ML VIAL As Ordered ONE; -LIDOCAINE 1% MDV 20ML VIAL As Ordered ONE; +MONT10TA97 PO; +NEUR300C PO; +OCUVTAB4 PO; +OMEP-173 PO; +REFR0.5D8 OP; -SIMV20TA22; +SIMV20TA22 PO; -SODIUM BICARBONATE 8.4% INJ 50MEQ 50 ML VIAL As Ordered ONE; +URSO1TAB8 PO; +XALA0.007 OU
== END ==
LOC: M RAD 12:26
PROVIDERS: ATTEND Internal Medicine Gastroenterology
DX: I72.8 Aneurysm of other specified arteries (principal)
CPT/HCPCS: 74174; Q9967

== ENCOUNTER → 2021-07-22 | Outpatient (CLI) | payer MEDICARE, BC ==
[~2021-07-22] MED LIST changes: -AMIT25TA17 PO; -CALC-211 PO; -CETI10CA2 PO; -CLOB5CR TOP; -EQL1CAP9 PO; -ESTETAB4 PO; -GNP99TAB3 PO; -ISOVUE-370 76% 100ML VIAL As Ordered ONE; -MONT10TA97 PO; -NEUR300C PO; -OCUVTAB4 PO; -OMEP-173 PO; -REFR0.5D8 OP; +SIMV20TA22; -SIMV20TA22 PO; -URSO1TAB8 PO; -XALA0.007 OU
--- NOTE | 2021-07-22 09:13 | REP ---
INDICATION: ABNORMAL RESULTS OF LIVER FUNCTION STUDIES. COMPARISON: 06/08/2020 TECHNIQUE: Real-time sonographic evaluation of the right upper quadrant with Doppler FINDINGS: Multiple ultrasonographic images of the liver show diffuse increased echoes throughout the hepatic parenchyma without evidence of a mass or ductal dilatation. The common bile duct measures approximately 6 mm in its greatest transverse dimension. Multiple ultrasonographic images of the gallbladder show no focal or diffuse gallbladder wall thickening. There are no echogenic foci within the gallbladder lumen, which casts acoustic shadows. There is no pericholecystic edema. Images of the pancreatic region show no gross abnormality. The imaged portion of the right kidney is unremarkable. IMPRESSION: Fatty infiltration of the liver. No significant change compared to the prior exam. Accredited by the [employer] in General Ultrasound. <Electronically signed by Jay Baltazar > 07/22/21 [id number]
== END ==
LOC: M RAD 08:12
PROVIDERS: ATTEND Internal Medicine Gastroenterology
DX: R94.5 Abnormal results of liver function studies (principal); K76.0 Fatty (change of) liver, not elsewhere classified

== ENCOUNTER → 2021-11-24 | Outpatient (REF) | payer MEDICARE, BC ==
[~2021-11-24] MED LIST changes: +AMIT25TA17 PO; +CALC-211 PO; +CETI10CA2 PO; +CLOB5CR TOP; +EQL1CAP9 PO; +ESTETAB4 PO; +GNP99TAB3 PO; +MONT10TA97 PO; +NEUR300C PO; +OCUVTAB4 PO; +OMEP-173 PO; +REFR0.5D8 OP; -SIMV20TA22; +SIMV20TA22 PO; +URSO1TAB8 PO; +XALA0.007 OU
== END ==
LOC: M LAB REF 11:57
PROVIDERS: ATTEND Family Medicine
DX: R74.8 Abnormal levels of other serum enzymes (principal)

== ENCOUNTER → 2021-12-01 | Outpatient (CLI) | payer MEDICARE, BC | LOC: M LABSMTC 09:15 | PROVIDERS: ATTEND Anesthesiology | DX: Z01.818 Encounter for other preprocedural examination (principal); Z11.52 Encounter for screening for COVID-19 ==

== ENCOUNTER → 2021-12-26 | Outpatient (CLI) | payer MEDICARE, BC ==
[2021-12-26 13:10] LABS: BASO # 0.1 10^3/uL (0.0-0.2); BASO % 1.5 % (0.0-1.0); EOS # 0.4 10^3/uL (0.0-0.5); EOS % 6.5 % (0.0-3.0); HEMATOCRIT 37.8 % (36.0-47.0); HEMOGLOBIN 11.8 g/dl (12.0-15.5); LYMPH # 1.7 10^3/uL (1.5-5.0); LYMPH % 32.2 % (24.0-44.0); MEAN CORPUSCULAR HEMOGLOBIN 29.4 pg (27.0-33.0); MEAN CORPUSCULAR HGB CONC 31.2 g/dl (32.0-36.5); MONO # 0.6 10^3/uL (0.0-0.8); MONO % 10.2 % (2.0-8.0); NEUTROPHILS # 2.6 10^3/uL (1.5-8.5); NEUTROPHILS % 49.2 % (36.0-66.0); PLATELET COUNT, AUTOMATED 324 10^3/uL (150-450); RED BLOOD COUNT 4.02 10^6/uL (4.00-5.40); WHITE BLOOD COUNT 5.4 10^3/uL (4.0-10.0)
[2021-12-26 16:41] LABS: BLOOD UREA NITROGEN 16 MG/DL (7-18); CARBON DIOXIDE LEVEL 29 MEQ/L (21-32); CHLORIDE LEVEL 104 MEQ/L (98-107); CREATININE FOR GFR 0.73 MG/DL (0.55-1.30); GLOMERULAR FILTRATION RATE > 60.0 (>39); GLUCOSE, FASTING 95 MG/DL (70-100); POTASSIUM SERUM 4.1 MEQ/L (3.5-5.1); SODIUM LEVEL 138 MEQ/L (136-145)
[2021-12-26 16:42] LABS: ALBUMIN 3.1 GM/DL (3.2-5.2); ALT/SGPT 19 U/L (12-78); BILIRUBIN,DIRECT 0.1 MG/DL (0.0-0.2); BILIRUBIN,TOTAL 0.3 MG/DL (0.2-1.0); CALCIUM LEVEL 9.1 MG/DL (8.8-10.2); TOTAL PROTEIN 8.4 GM/DL (6.4-8.2)
[2021-12-26 16:53] LABS: HEPATITIS B SURFACE ANTIBODY NEGATIVE (POSITIVE)
== END ==
LOC: M PLALAB 08:50
DX: K74.3 Primary biliary cirrhosis (principal)

== ENCOUNTER → 2021-12-31 | Outpatient (CLI) | payer MEDICARE, BC | LOC: M LABSMTC 10:06 | PROVIDERS: ATTEND Anesthesiology | DX: Z01.812 Encounter for preprocedural laboratory examination (principal); Z20.822 Contact with and (suspected) exposure to COVID-19 ==

== ENCOUNTER 2022-01-05 10:36 | Day surgery (SDC) | payer MEDICARE, BC ==
[~2022-01-05] VITALS: Ht 149.9 cm; Wt 82.6 kg
[~2022-01-05 10:36] MED LIST changes: +NS 1,000 ML IV ONE
[2022-01-05] MEDS ORDERED: ACET-683 PO (11:00)
[2022-01-05] MEDS ORDERED: LIDOCAINE 2% 100MG/5ML SDV (FOR ANES.) As Ordered ONE (12:40)
[2022-01-05] MEDS ORDERED: propofoL 200 MG/20 ML VIAL As Ordered ONE (12:40)
[2022-01-05 12:51] VITALS: BP 133/63
== END 2022-01-05 13:08 | disposition home or self-care (01) ==
LOC: M OPP 10:36
PROVIDERS: ATTEND Surgery
DX: Z12.11 Encounter for screening for malignant neoplasm of colon (principal); Z86.010 Personal history of colon polyps; K63.5 Polyp of colon; K73.0 Chronic persistent hepatitis, not elsewhere classified; K64.8 Other hemorrhoids; K76.9 Liver disease, unspecified; K58.9 Irritable bowel syndrome, unspecified; Z79.82 Long term (current) use of aspirin; Z79.899 Other long term (current) drug therapy; Z88.1 Allergy status to other antibiotic agents; Z87.891 Personal history of nicotine dependence

== ENCOUNTER → 2022-03-03 | Outpatient (REF) | payer MEDICARE, BC ==
[~2022-03-03] MED LIST changes: +ACET-683 PO; -NS 1,000 ML IV ONE
[2022-03-03 12:52] LABS: APPEARANCE, URINE CLEAR (CLEAR); BACTERIA, URINE AUTO 1+ (NEGATIVE); BILIRUBIN, URINE AUTO NEGATIVE (NEGATIVE); BLOOD, URINE BLOOD NEGATIVE (NEGATIVE); COLOR, URINE YELLOW (YELLOW); GLUCOSE, URINE (UA) AUTO NEGATIVE (NEGATIVE); KETONE, URINE AUTO NEGATIVE (NEGATIVE); LEUKOCYTE ESTERASE, URINE AUTO NEGATIVE (NEGATIVE); NITRITE, URINE AUTO NEGATIVE (NEGATIVE); PROTEIN, URINE AUTO NEGATIVE (NEGATIVE); RBC, URINE AUTO 0 /HPF (0-3); SPECIFIC GRAVITY URINE AUTO 1.012 (1.002-1.035); SQUAMOUS EPITHELIAL CELL UR AU 1 /HPF (0-6); UROBILINOGEN, URINE AUTO 0.2 mg/dL (0.0-2.0); WBC, URINE AUTO 0 /HPF (0-3)
== END ==
LOC: M LAB REF 12:32
PROVIDERS: ATTEND Obstetrics & Gynecology
DX: N39.41 Urge incontinence (principal)

== ENCOUNTER → 2022-03-17 | Outpatient (CLI) | payer MEDICARE, BC ==
[2022-03-17 14:16] LABS: BLOOD UREA NITROGEN 22 MG/DL (7-18); CREATININE FOR GFR 0.92 MG/DL (0.55-1.30); GLOMERULAR FILTRATION RATE > 60.0 (>39)
== END ==
LOC: M LAB 13:14
PROVIDERS: ATTEND Obstetrics & Gynecology
DX: R10.813 Right lower quadrant abdominal tenderness (principal)

== ENCOUNTER → 2022-03-21 | Outpatient (CLI) | payer MEDICARE, BC ==
[~2022-03-21] MED LIST changes: +GASTROGRAFIN SOLUTION 30ML (Q9963) As Ordered ONE; +ISOVUE-370 76% 100ML VIAL As Ordered ONE
== END ==
LOC: M RAD 12:30
PROVIDERS: ATTEND Obstetrics & Gynecology
DX: R10.813 Right lower quadrant abdominal tenderness (principal)
CPT/HCPCS: 74178; Q9963; Q9967

== ENCOUNTER → 2022-04-19 | Outpatient (CLI) | payer MEDICARE, BC ==
[~2022-04-19] MED LIST changes: -GASTROGRAFIN SOLUTION 30ML (Q9963) As Ordered ONE; -ISOVUE-370 76% 100ML VIAL As Ordered ONE
[2022-04-19 16:06] LABS: C REACTIVE PROTEIN QUANTITATIV 1.15 MG/DL (0.00-0.30); RHEUMATOID FACTOR QUANT 25.5 IU/ML (<15.0)
[2022-04-22 00:07] LABS: ANA (HEP2) Positive (.); CYCLIC CITRULLINATED PEPTIDE 5 units (0-19)
== END ==
LOC: M PLAIMG 11:11
PROVIDERS: ATTEND Internal Medicine
DX: M25.471 Effusion, right ankle (principal); M25.472 Effusion, left ankle

== ENCOUNTER → 2022-04-28 | Outpatient (REF) | payer MEDICARE, BC ==
[2022-04-28 13:28] LABS: BASO # 0.1 10^3/uL (0.0-0.2); BASO % 1.2 % (0.0-1.0); EOS # 0.4 10^3/uL (0.0-0.5); EOS % 5.8 % (0.0-3.0); HEMATOCRIT 34.2 % (36.0-47.0); HEMOGLOBIN 10.7 g/dl (12.0-15.5); LYMPH % 30.4 % (24.0-44.0); MEAN CORPUSCULAR HEMOGLOBIN 30.3 pg (27.0-33.0); MEAN CORPUSCULAR HGB CONC 31.3 g/dl (32.0-36.5); MEAN CORPUSCULAR VOLUME 96.9 fl (80.0-96.0); MONO # 0.9 10^3/uL (0.0-0.8); MONO % 13.5 % (2.0-8.0); NEUTROPHILS # 3.3 10^3/uL (1.5-8.5); NEUTROPHILS % 48.8 % (36.0-66.0); PLATELET COUNT, AUTOMATED 301 10^3/uL (150-450); RED BLOOD COUNT 3.53 10^6/uL (4.00-5.40); WHITE BLOOD COUNT 6.7 10^3/uL (4.0-10.0)
[2022-04-28 13:34] LABS: APPEARANCE, URINE CLEAR (CLEAR); BACTERIA, URINE AUTO NEGATIVE (NEGATIVE); BILIRUBIN, URINE AUTO NEGATIVE (NEGATIVE); BLOOD, URINE BLOOD NEGATIVE (NEGATIVE); COLOR, URINE YELLOW (YELLOW); GLUCOSE, URINE (UA) AUTO NEGATIVE (NEGATIVE); KETONE, URINE AUTO NEGATIVE (NEGATIVE); LEUKOCYTE ESTERASE, URINE AUTO TRACE (NEGATIVE); NITRITE, URINE AUTO NEGATIVE (NEGATIVE); PROTEIN, URINE AUTO NEGATIVE (NEGATIVE); RBC, URINE AUTO 0 /HPF (0-3); SPECIFIC GRAVITY URINE AUTO 1.011 (1.002-1.035); SQUAMOUS EPITHELIAL CELL UR AU 2 /HPF (0-6); UROBILINOGEN, URINE AUTO 0.2 mg/dL (0.0-2.0); WBC, URINE AUTO 0 /HPF (0-3)
[2022-04-28 13:53] LABS: COMPLEMENT C3 129 MG/DL (90-180); COMPLEMENT C4 22 MG/DL (10-40)
[2022-04-28 13:59] LABS: CREATININE,RANDOM URINE 47.6 MG/DL
== END ==
LOC: M SFHCRHEU 09:59
PROVIDERS: ATTEND Internal Medicine
DX: R76.8 Other specified abnormal immunological findings in serum (principal)

== ENCOUNTER → 2022-05-03 | Outpatient (REF) | payer MEDICARE, BC | LOC: M LAB REF 12:30 | PROVIDERS: ATTEND Family Medicine | DX: M25.59 Pain in other specified joint (principal) ==

== ENCOUNTER → 2022-06-06 | Outpatient (CLI) | payer MEDICARE, BC | LOC: M WHC 13:51 | PROVIDERS: ATTEND Obstetrics & Gynecology | DX: Z12.31 Encounter for screening mammogram for malignant neoplasm of breast (principal) ==

== ENCOUNTER → 2022-06-06 | Outpatient (CLI) | payer MEDICARE, BC ==
[2022-06-06 16:08] LABS: ALBUMIN 3.1 GM/DL (3.2-5.2); ALT/SGPT 20 U/L (12-78); BILIRUBIN,DIRECT < 0.1 MG/DL (0.0-0.2); BILIRUBIN,TOTAL 0.3 MG/DL (0.2-1.0); TOTAL PROTEIN 8.4 GM/DL (6.4-8.2)
== END ==
LOC: M PLALAB 13:49
PROVIDERS: ATTEND Internal Medicine
DX: K74.3 Primary biliary cirrhosis (principal)

== ENCOUNTER → 2022-09-14 | Outpatient (REF) | payer MEDICARE, BC | LOC: M LAB REF 16:12 | PROVIDERS: ATTEND Family Medicine | DX: M25.59 Pain in other specified joint (principal) ==

== ENCOUNTER 2022-10-12 16:29 | Emergency (ER) | payer MEDICARE, BC ==
[~2022-10-12] VITALS: Ht 149.9 cm; Wt 84.1 kg
[2022-10-12 17:45] VITALS: BP 137/59
== END 2022-10-12 17:47 | disposition home or self-care (01) ==
LOC: M ED 16:29 → EDBD 16:29 → M ED 17:47
DX: U07.1 COVID-19 (principal); I10 Essential (primary) hypertension; E07.9 Disorder of thyroid, unspecified; K74.60 Unspecified cirrhosis of liver; Z20.822 Contact with and (suspected) exposure to COVID-19; Z79.890 Hormone replacement therapy; Z79.82 Long term (current) use of aspirin; Z79.899 Other long term (current) drug therapy; Z88.1 Allergy status to other antibiotic agents

== ENCOUNTER → 2022-12-25 | Outpatient (CLI) | payer MEDICARE, BC ==
[2022-12-25 17:11] LABS: BASO # 0.1 10^3/uL (0.0-0.2); BASO % 1.1 % (0.0-1.0); EOS # 0.5 10^3/uL (0.0-0.5); EOS % 5.5 % (0.0-3.0); HEMATOCRIT 36.5 % (36.0-47.0); HEMOGLOBIN 11.4 g/dl (12.0-15.5); LYMPH # 2.8 10^3/uL (1.5-5.0); LYMPH % 31.3 % (24.0-44.0); MEAN CORPUSCULAR HEMOGLOBIN 29.5 pg (27.0-33.0); MEAN CORPUSCULAR HGB CONC 31.2 g/dl (32.0-36.5); MEAN CORPUSCULAR VOLUME 94.3 fl (80.0-96.0); MONO % 11.5 % (2.0-8.0); NEUTROPHILS # 4.5 10^3/uL (1.5-8.5); NEUTROPHILS % 50.3 % (36.0-66.0); PLATELET COUNT, AUTOMATED 338 10^3/uL (150-450); RED BLOOD COUNT 3.87 10^6/uL (4.00-5.40)
[2022-12-25 17:37] LABS: ERYTHROCYTE SEDIMENTATION RATE 92 mm/hr (0-30)
== END ==
LOC: M PLALAB 16:08
PROVIDERS: ATTEND Ophthalmology
DX: M31.6 Other giant cell arteritis (principal)

== ENCOUNTER → 2023-01-16 | Outpatient (REF) | payer MEDICARE, BC | LOC: M LAB REF 12:15 | PROVIDERS: ATTEND Family Medicine | DX: M25.59 Pain in other specified joint (principal) ==

== ENCOUNTER → 2023-06-11 | Outpatient (CLI) | payer MEDICARE, BC ==
[~2023-06-11] MED LIST changes: -AMIT25TA17 PO; +AMIT25TA19 PO
[2023-06-11 13:56] LABS: IMMUNOGLOBULIN A 480.4 MG/DL (40-350); IMMUNOGLOBULIN G 1964 MG/DL (650-1600)
[2023-06-11 13:57] LABS: ALBUMIN 3.2 G/DL (3.2-5.2); ALKALINE PHOSPHATASE 122 U/L (46-116); ALT/SGPT 12 U/L (7.0-40); AST/SGOT 12 U/L (<34); BILIRUBIN,DIRECT 0.1 MG/DL (<0.4); BILIRUBIN,TOTAL 0.2 MG/DL (0.3-1.2); BLOOD UREA NITROGEN 22 MG/DL (9-23); CALCIUM LEVEL 9.2 MG/DL (8.3-10.6); CARBON DIOXIDE LEVEL 30 MMOL/L (20-31); CHLORIDE LEVEL 103 MMOL/L (98-107); CREATININE FOR GFR 0.78 MG/DL (0.55-1.30); GLOMERULAR FILTRATION RATE > 60.0 (>39); GLUCOSE, FASTING 100 MG/DL (74-106); IMMUNOGLOBULIN M 145.3 MG/DL (50-300); POTASSIUM SERUM 4.1 MMOL/L (3.5-5.1); SODIUM LEVEL 139 MMOL/L (136-145); TOTAL PROTEIN 7.8 G/DL (5.7-8.2)
[2023-06-11 13:58] LABS: BASO # 0.1 10^3/uL (0.0-0.2); BASO % 1.1 % (0.0-1.0); EOS # 0.3 10^3/uL (0.0-0.5); EOS % 3.6 % (0.0-3.0); HEMATOCRIT 35.4 % (36.0-47.0); HEMOGLOBIN 11.2 g/dl (12.0-15.5); LYMPH # 1.9 10^3/uL (1.5-5.0); LYMPH % 27.1 % (24.0-44.0); MEAN CORPUSCULAR HEMOGLOBIN 30.2 pg (27.0-33.0); MEAN CORPUSCULAR HGB CONC 31.6 g/dl (32.0-36.5); MEAN CORPUSCULAR VOLUME 95.4 fl (80.0-96.0); MONO # 0.9 10^3/uL (0.0-0.8); MONO % 12.6 % (2.0-8.0); NEUTROPHILS # 3.9 10^3/uL (1.5-8.5); NEUTROPHILS % 55.2 % (36.0-66.0); PLATELET COUNT, AUTOMATED 305 10^3/uL (150-450); RED BLOOD COUNT 3.71 10^6/uL (4.00-5.40); WHITE BLOOD COUNT 7.1 10^3/uL (4.0-10.0)
[2023-06-11 15:02] LABS: INR 1.07; PROTHROMBIN TIME 13.6 SECONDS (12.5-14.5)
== END ==
LOC: M PLALAB 10:48
DX: K74.3 Primary biliary cirrhosis (principal)

== ENCOUNTER → 2023-06-21 | Outpatient (REF) | payer MEDICARE, BC | LOC: M LAB REF 13:02 | PROVIDERS: ATTEND Family Medicine | DX: D64.9 Anemia, unspecified (principal) ==

== ENCOUNTER → 2024-01-11 | Outpatient (CLI) | payer MEDICARE, BC ==
[~2024-01-11] MED LIST changes: -OLME20TA2 PO; +OLME20TA50 PO
[2024-01-11 17:39] LABS: BASO # 0.1 10^3/uL (0.0-0.2); BASO % 1.1 % (0.0-1.0); EOS # 0.3 10^3/uL (0.0-0.5); EOS % 4.3 % (0.0-3.0); HEMATOCRIT 36.7 % (36.0-47.0); HEMOGLOBIN 11.8 g/dl (12.0-15.5); LYMPH # 1.4 10^3/uL (1.5-5.0); LYMPH % 19.4 % (24.0-44.0); MEAN CORPUSCULAR HEMOGLOBIN 30.1 pg (27.0-33.0); MEAN CORPUSCULAR HGB CONC 32.2 g/dl (32.0-36.5); MEAN CORPUSCULAR VOLUME 93.6 fl (80.0-96.0); MONO # 0.9 10^3/uL (0.0-0.8); MONO % 12.4 % (2.0-8.0); NEUTROPHILS # 4.6 10^3/uL (1.5-8.5); NEUTROPHILS % 62.7 % (36.0-66.0); PLATELET COUNT, AUTOMATED 281 10^3/uL (150-450); RED BLOOD COUNT 3.92 10^6/uL (4.00-5.40); WHITE BLOOD COUNT 7.4 10^3/uL (4.0-10.0)
[2024-01-11 17:50] LABS: ERYTHROCYTE SEDIMENTATION RATE 100 mm/hr (0-30)
[2024-01-11 18:07] LABS: C REACTIVE PROTEIN QUANTITATIV 1.1 MG/DL (<1.0)
[2024-01-11 18:08] LABS: MAGNESIUM LEVEL 2.2 MG/DL (1.8-2.4); PHOSPHORUS LEVEL 2.7 MG/DL (2.4-5.1)
[2024-01-11 18:09] LABS: TOTAL 25(OH) VITAMIN D 44.6 NG/ML (20.0-100.0)
== END ==
LOC: M PLALAB 14:09
PROVIDERS: ATTEND Internal Medicine
DX: R53.83 Other fatigue (principal); M35.05 Sjogren syndrome with inflammatory arthritis; Z79.899 Other long term (current) drug therapy; Z86.39 Personal history of other endocrine, nutritional and metabolic disease; Z79.1 Long term (current) use of non-steroidal anti-inflammatories (NSAID); Z79.82 Long term (current) use of aspirin; Z79.890 Hormone replacement therapy; Z80.8 Family history of malignant neoplasm of other organs or systems

== ENCOUNTER → 2024-02-26 | Outpatient (REF) | payer MEDICARE, BC | LOC: M SFHCPLAZ 10:22 | PROVIDERS: ATTEND Nurse Practitioner Family | DX: N73.9 Female pelvic inflammatory disease, unspecified (principal) ==

== ENCOUNTER → 2024-02-26 | Outpatient (CLI) | payer MEDICARE, BC ==
[~2024-02-26] MED LIST changes: +ESTE500T3 PO; -ESTETAB4 PO
== END ==
LOC: M WHC 11:46
PROVIDERS: ATTEND Nurse Practitioner Family
DX: Z12.31 Encounter for screening mammogram for malignant neoplasm of breast (principal)

== ENCOUNTER → 2024-03-25 | Outpatient (REF) | payer MEDICARE, BC | LOC: M LAB REF 12:54 | PROVIDERS: ATTEND Family Medicine | DX: M15.9 Polyosteoarthritis, unspecified (principal) ==

== ENCOUNTER → 2024-07-30 | Outpatient (CLI) | payer MEDICARE, BC ==
[2024-07-30 09:19] LABS: HEMOGLOBIN 11.2 g/dl (12.0-15.5); MEAN CORPUSCULAR HEMOGLOBIN 30.1 pg (27.0-33.0); MEAN CORPUSCULAR VOLUME 94.1 fl (80.0-96.0); PLATELET COUNT, AUTOMATED 246 10^3/uL (150-450); RED BLOOD COUNT 3.72 10^6/uL (4.00-5.40); WHITE BLOOD COUNT 4.9 10^3/uL (4.0-10.0)
[2024-07-30 09:30] LABS: ERYTHROCYTE SEDIMENTATION RATE 84 mm/hr (0-30)
[2024-07-30 09:35] LABS: INR 1.19; PROTHROMBIN TIME 14.7 SECONDS (12.5-14.5)
[2024-07-30 09:49] LABS: ALBUMIN 3.3 G/DL (3.2-5.2); ALKALINE PHOSPHATASE 139 U/L (46-116); ALT/SGPT 11 U/L (7.0-40); AST/SGOT 16 U/L (<34); BILIRUBIN,TOTAL 0.5 MG/DL (0.3-1.2); BLOOD UREA NITROGEN 23 MG/DL (9-23); CALCIUM LEVEL 9.1 MG/DL (8.3-10.6); CARBON DIOXIDE LEVEL 26 MMOL/L (20-31); CHLORIDE LEVEL 104 MMOL/L (98-107); CREATININE FOR GFR 0.77 MG/DL (0.55-1.30); GLOMERULAR FILTRATION RATE > 60.0 (>32); GLUCOSE, FASTING 90 MG/DL (74-106); POTASSIUM SERUM 3.8 MMOL/L (3.5-5.1); SODIUM LEVEL 137 MMOL/L (136-145); TOTAL PROTEIN 8.1 G/DL (5.7-8.2)
== END ==
LOC: M RAD 08:15
PROVIDERS: ATTEND Orthopaedic Surgery
DX: Z01.812 Encounter for preprocedural laboratory examination (principal); Z79.01 Long term (current) use of anticoagulants

== ENCOUNTER → 2024-09-01 | Outpatient (REF) | payer MEDICARE, BC | LOC: M LAB REF 12:46 | PROVIDERS: ATTEND Family Medicine | DX: M15.9 Polyosteoarthritis, unspecified (principal); M25.561 Pain in right knee ==

== ENCOUNTER → 2025-01-12 | Outpatient (REF) | payer MEDICARE, BC ==
[~2025-01-12] MED LIST changes: -POTA10808 PO; +POTA10809 PO
== END ==
LOC: M LAB REF 15:23
PROVIDERS: ATTEND Family Medicine
DX: M15.9 Polyosteoarthritis, unspecified (principal); M35.00 Sjogren syndrome, unspecified

== ENCOUNTER → 2025-01-29 | Outpatient (CLI) | payer MEDICARE, BC | LOC: M PLAIMG 09:52 | PROVIDERS: ATTEND Orthopaedic Surgery | DX: M47.27 Other spondylosis with radiculopathy, lumbosacral region (principal) ==

== ENCOUNTER → 2025-03-10 | Outpatient (CLI) | payer MEDICARE, BC | LOC: M WHC 11:11 | PROVIDERS: ATTEND Nurse Practitioner Family | DX: Z12.31 Encounter for screening mammogram for malignant neoplasm of breast (principal) ==

== ENCOUNTER → 2025-03-10 | Outpatient (REF) | payer MEDICARE, BC | LOC: M SFHCWAGY 13:07 | PROVIDERS: ATTEND Nurse Practitioner Family | DX: L29.2 Pruritus vulvae (principal) ==

== ENCOUNTER → 2025-05-25 | Outpatient (REF) | payer MEDICARE, BC ==
[~2025-05-25] MED LIST changes: +URSO1TAB2 PO; -URSO1TAB8 PO
[2025-05-25 13:00] LABS: C REACTIVE PROTEIN QUANTITATIV < 0.50 MG/DL (<1.0)
== END ==
LOC: M LAB REF 12:02
PROVIDERS: ATTEND Family Medicine
DX: D64.9 Anemia, unspecified (principal); M15.9 Polyosteoarthritis, unspecified

== ENCOUNTER 2025-06-12 08:22 | Day surgery (SDC) | payer MEDICARE, BC ==
[~2025-06-12] VITALS: Ht 149.9 cm; Wt 72.1 kg
[2025-06-12] MEDS ORDERED: FAMOTIDINE 20 MG/2 ML VIAL IVP ONE (08:50)
[2025-06-12] MEDS ORDERED: LR 1,000 ML IV SCH ×2 (08:50→12:45)
[2025-06-12 09:11] LABS: PLATELET COUNT, AUTOMATED 271 10^3/uL (150-450)
[2025-06-12] MEDS ORDERED: LIDOCAINE 2% 100 MG/5 ML SDV (FOR ANES.) As Ordered ONE (11:21)
[2025-06-12] MEDS ORDERED: dexAMETHasone 4 MG/ML 1 ML VIAL As Ordered ONE (11:21)
[2025-06-12] MEDS ORDERED: ACETAMINOPHEN 1000MG/100ML IV BAG As Ordered ONE (11:21)
[2025-06-12] MEDS ORDERED: KETOROLAC 30 MG/ML 1 ML VIAL As Ordered ONE (11:21)
[2025-06-12] MEDS ORDERED: ONDANSETRON 4MG 2ML VIAL As Ordered ONE (11:21)
[2025-06-12] MEDS: ceFAZolin SOD 2 GM IV ONCE IV ONE (11:25)
[2025-06-12] MEDS ORDERED: ONDANSETRON 4MG 2ML VIAL IV PRN (12:45)
[2025-06-12] MEDS ORDERED: HYDROMORPHONE HCL 0.5 MG/0.5 ML SYRINGE IV PRN (12:45)
[2025-06-12 14:51] VITALS: TEMP 96.3; O2SAT 98
[2025-06-12 14:53] VITALS: BP 140/65
== END 2025-06-12 15:00 | disposition home or self-care (01) ==
LOC: M SDC 08:22
PROVIDERS: ATTEND Specialist
DX: N81.3 Complete uterovaginal prolapse (principal); N32.89 Other specified disorders of bladder; R32 Unspecified urinary incontinence; Z90.710 Acquired absence of both cervix and uterus; E03.9 Hypothyroidism, unspecified; I10 Essential (primary) hypertension; E78.00 Pure hypercholesterolemia, unspecified; Z79.82 Long term (current) use of aspirin; Z79.890 Hormone replacement therapy; Z79.899 Other long term (current) drug therapy; K58.9 Irritable bowel syndrome, unspecified; Z87.19 Personal history of other diseases of the digestive system; Z90.49 Acquired absence of other specified parts of digestive tract; Z88.1 Allergy status to other antibiotic agents
CPT/HCPCS: 36415; 57260; 85027; 86850; J0131; J0665; J0690; J1100; J1885; J2405; J3010

== ENCOUNTER → 2025-07-24 | Outpatient (REF) | payer MEDICARE, BC ==
[2025-07-24 16:13] LABS: APPEARANCE, URINE HAZY (CLEAR); BACTERIA, URINE AUTO 1+ (NEGATIVE); BILIRUBIN, URINE AUTO NEGATIVE (NEGATIVE); BLOOD, URINE BLOOD NEGATIVE (NEGATIVE); GLUCOSE, URINE (UA) AUTO NEGATIVE (NEGATIVE); KETONE, URINE AUTO NEGATIVE (NEGATIVE); LEUKOCYTE ESTERASE, URINE AUTO 1+ (NEGATIVE); NITRITE, URINE AUTO NEGATIVE (NEGATIVE); PROTEIN, URINE AUTO NEGATIVE (NEGATIVE); RBC, URINE AUTO 0 /HPF (0-3); SPECIFIC GRAVITY URINE AUTO 1.015 (1.002-1.035); SQUAMOUS EPITHELIAL CELL UR AU 5 /HPF (0-6); UROBILINOGEN, URINE AUTO 0.2 mg/dL (0.0-2.0); WBC, URINE AUTO 9 /HPF (0-3)
[2025-07-24 16:28] LABS: TOTAL PROTEIN,RANDOM URINE 11.0 MG/DL (0.0-14.0)
[2025-07-24 17:58] LABS: BASO # 0.1 10^3/uL (0.0-0.2); BASO % 1.2 % (0.0-1.0); C REACTIVE PROTEIN QUANTITATIV < 0.50 MG/DL (<1.0); EOS # 0.4 10^3/uL (0.0-0.5); EOS % 4.6 % (0.0-3.0); LYMPH # 2.6 10^3/uL (1.5-5.0); LYMPH % 33.6 % (24.0-44.0); MONO # 0.8 10^3/uL (0.0-0.8); MONO % 10.0 % (2.0-8.0); NEUTROPHILS # 3.9 10^3/uL (1.5-8.5); NEUTROPHILS % 50.2 % (36.0-66.0); PLATELET COUNT, AUTOMATED 263 10^3/uL (150-450)
[2025-07-24 17:59] LABS: ALT/SGPT 13 U/L (7.0-40); AST/SGOT 20 U/L (<34); CALCIUM LEVEL 9.2 MG/DL (8.3-10.6); CARBON DIOXIDE LEVEL 26 MMOL/L (20-31); CHLORIDE LEVEL 103 MMOL/L (98-107); CREATININE FOR GFR 0.78 MG/DL (0.55-1.30); GLOMERULAR FILTRATION RATE 76.3 (>32); IRON (FE) 74 UG/DL (50-170); MAGNESIUM LEVEL 2.0 MG/DL (1.8-2.4); PERCENT SATURATION 20.5 % (13.2-45.0); POTASSIUM SERUM 3.6 MMOL/L (3.5-5.1); SODIUM LEVEL 137 MMOL/L (136-145)
[2025-07-24 18:02] LABS: COMPLEMENT C4 25.3 MG/DL (12-36)
[2025-07-24 18:03] LABS: TOTAL 25(OH) VITAMIN D 61.9 NG/ML (20.0-100.0)
[2025-07-24 18:04] LABS: VITAMIN B12 LEVEL 283 PG/ML (211-911)
[2025-07-24 18:06] LABS: ERYTHROCYTE SEDIMENTATION RATE 89 mm/hr (0-30)
== END ==
LOC: M SFHCRHEU 13:52
PROVIDERS: ATTEND Internal Medicine
DX: M35.05 Sjogren syndrome with inflammatory arthritis (principal); D64.9 Anemia, unspecified; R53.83 Other fatigue; Z79.899 Other long term (current) drug therapy

== ENCOUNTER → 2025-07-30 | Outpatient (CLI) | payer MEDICARE, BC | LOC: M PLAIMG 10:20 | PROVIDERS: ATTEND Family Medicine | DX: R01.1 Cardiac murmur, unspecified (principal) ==

== ENCOUNTER → 2025-09-14 | Outpatient (REF) | payer MEDICARE, BC ==
[2025-09-14 15:07] LABS: C REACTIVE PROTEIN QUANTITATIV < 0.50 MG/DL (<1.0)
== END ==
LOC: M LAB REF 12:19
PROVIDERS: ATTEND Family Medicine
DX: M54.50 Low back pain, unspecified (principal); D64.9 Anemia, unspecified

== ENCOUNTER → 2025-09-17 | Outpatient (CLI) | payer MEDICARE, BC | LOC: M ADAMS 11:56 | PROVIDERS: ATTEND Internal Medicine | DX: M35.05 Sjogren syndrome with inflammatory arthritis (principal); M85.841 Other specified disorders of bone density and structure, right hand; M85.842 Other specified disorders of bone density and structure, left hand; M19.031 Primary osteoarthritis, right wrist; M19.032 Primary osteoarthritis, left wrist; M11.231 Other chondrocalcinosis, right wrist; M11.232 Other chondrocalcinosis, left wrist ==

== ENCOUNTER → 2025-10-20 | Outpatient (REF) | payer MEDICARE, BC ==
[2025-10-20 13:53] LABS: C REACTIVE PROTEIN QUANTITATIV < 0.50 MG/DL (<1.0)
[2025-10-20 13:54] LABS: ALT/SGPT 12 U/L (7.0-40); AST/SGOT 26 U/L (<34); BASO # 0.1 10^3/uL (0.0-0.2); BASO % 1.9 % (0.0-1.0); CALCIUM LEVEL 8.9 MG/DL (8.3-10.6); CARBON DIOXIDE LEVEL 27 MMOL/L (20-31); CHLORIDE LEVEL 104 MMOL/L (98-107); CREATININE FOR GFR 0.79 MG/DL (0.55-1.30); EOS # 0.4 10^3/uL (0.0-0.5); EOS % 6.7 % (0.0-3.0); GLOMERULAR FILTRATION RATE 75.1 (>32); LYMPH # 2.1 10^3/uL (1.5-5.0); LYMPH % 40.9 % (24.0-44.0); MONO # 0.6 10^3/uL (0.0-0.8); MONO % 10.5 % (2.0-8.0); NEUTROPHILS # 2.1 10^3/uL (1.5-8.5); NEUTROPHILS % 39.2 % (36.0-66.0); PLATELET COUNT, AUTOMATED 249 10^3/uL (150-450); POTASSIUM SERUM 4.3 MMOL/L (3.5-5.1); SODIUM LEVEL 140 MMOL/L (136-145)
== END ==
LOC: M SFHCADAM 08:05
PROVIDERS: ATTEND Internal Medicine
DX: M35.05 Sjogren syndrome with inflammatory arthritis (principal); D64.9 Anemia, unspecified; H04.129 Dry eye syndrome of unspecified lacrimal gland; R53.83 Other fatigue; M15.9 Polyosteoarthritis, unspecified; M11.231 Other chondrocalcinosis, right wrist; M11.232 Other chondrocalcinosis, left wrist; D89.2 Hypergammaglobulinemia, unspecified